=== PATIENT | female | born 1940 | race Caucasian/White ===

== ENCOUNTER 2016-06-20 13:13 | Emergency (ER) | payer OTHER ==
[~2016-06-20] VITALS: Ht 157.5 cm; Wt 50.7 kg
[2016-06-20 13:56] LABS: EOSINOPHIL (%) 0.1 % (0-5); HEMATOCRIT 38.8 % (36.0-46.0); IMMATURE GRANULOCYTE (%) 0.2 % (0.0-0.7); IMMATURE GRANULOCYTE COUNT 0.2 K/uL; LYMPHOCYTE COUNT 0.4 K/uL (1.0-2.8); MCH 31.2 PG (29.0-34.0); MCHC 33.2 G/DL (30.0-36.0); MCV 93.7 FL (83-99); MEAN PLAT.VOLUME 10.8 uM^3 (9.5-12.4); MONOCYTE (%) 2.4 % (3-12); MONOCYTE COUNT 0.3 K/uL (0-0.8); NEUTROPHIL (%) 93.6 % (45-76); NEUTROPHIL COUNT 10.7 K/uL (1.8-6.4); PLATELET COUNT 170 K/uL (156-360); RBC DIS.WIDTH-CV 12.8 % (11.8-14.6); RBC DIS.WIDTH-SD 42.4 % (39-53); RED BLOOD COUNT 4.14 M/uL (3.80-5.20); WHITE BLOOD COUNT 11.4 K/uL (4.1-10.2)
[2016-06-20 14:04] LABS: CHLORIDE 107 mEq/L (99-109); POTASSIUM 4.2 mEq/L (3.7-5.4); SODIUM 142 mEq/L (136-147)
[2016-06-20 14:06] LABS: GLUCOSE 148 mg/dL (70-99)
[2016-06-20 14:07] LABS: ANION GAP 11 MEQ/L (2-14)
[2016-06-20 14:09] LABS: ALKALINE PHOSPHATASE 69 IU/L (3-129)
[2016-06-20 14:10] LABS: GFR ESTIMATE (CALCULATED) > 59 mL/min/
[2016-06-20 14:11] LABS: UREA NITROGEN (BUN) 24 mg/dL (9-23)
[2016-06-20 14:13] LABS: LIPASE 24 U/L (1.0-51.0)
[2016-06-20 14:19] LABS: TROP-I INTERPRETATION NEGATIVE; TROPONIN-I < 0.01 ng/mL (0.0-0.30)
[2016-06-20] MEDS ORDERED: ZOFRAN ODT4 MG PO (17:10)
[2016-06-20] MEDS ORDERED: PERCOCET 5/31 TABLET PO (17:10)
[2016-06-20 17:12] VITALS: BP 142/63
== END 2016-06-20 17:15 | disposition home or self-care (01) ==
LOC: EME 13:13
PROVIDERS: Physician Assistant
DX: R10.9 Unspecified abdominal pain (principal); R11.2 Nausea with vomiting, unspecified
CPT/HCPCS: 71020; 74177; 80053; 83690; 84484; 85025; 93005; 99281; 99285; J2405; J7030

== ENCOUNTER 2016-08-06 10:13 | Day surgery (SDC) | payer OTHER ==
[~2016-08-06] VITALS: Ht 157.5 cm; Wt 51.3 kg
[~2016-08-06 10:13] MED LIST: ONE DAILY WOME1 EACH PO; PERCOCET 5/31 TABLET PO; ZOFRAN ODT4 MG PO
[2016-08-06 11:00] LABS: EOSINOPHIL (%) 2.2 % (0-5); EOSINOPHIL COUNT 0.1 K/uL (0-0.3); HEMATOCRIT 37.1 % (36.0-46.0); IMMATURE GRANULOCYTE (%) 0.2 % (0.0-0.7); LYMPHOCYTE COUNT 0.9 K/uL (1.0-2.8); MCH 30.4 PG (29.0-34.0); MCHC 32.1 G/DL (30.0-36.0); MCV 94.9 FL (83-99); MONOCYTE (%) 8.2 % (3-12); MONOCYTE COUNT 0.5 K/uL (0-0.8); NEUTROPHIL (%) 72.7 % (45-76); PLATELET COUNT 168 K/uL (156-360); RBC DIS.WIDTH-CV 12.6 % (11.8-14.6); RBC DIS.WIDTH-SD 43.8 % (39-53); RED BLOOD COUNT 3.91 M/uL (3.80-5.20); WHITE BLOOD COUNT 5.5 K/uL (4.1-10.2)
[2016-08-06 11:03] VITALS: BP 140/65
[2016-08-06 11:28] LABS: INTER. NORMALIZED RATIO 1.1; PROTHROMBIN TIME 10.7 (9.2-11.2)
[2016-08-06 11:31] LABS: ALKALINE PHOSPHATASE 58 IU/L (3-129); ANION GAP 7 MEQ/L (2-14); CHLORIDE 105 MEQ/L (99-109); GFR ESTIMATE (CALCULATED) > 59 mL/min/; GLUCOSE 91 mg/dL (70-99); POTASSIUM 4.3 MEQ/L (3.7-5.4); SAMPLE HEMOLYSIS CHECK 0; SAMPLE ICTERIC CHECK 0; SAMPLE LIPEMIA CHECK 0; SODIUM 141 MEQ/L (136-147); TOTAL BILIRUBIN 1.1 MG/DL (0.0-1.0); UREA NITROGEN (BUN) 18 mg/dL (9-23)
[2016-08-06] MEDS ORDERED: HYDROCODON-ACE1 EAC7 PO (14:58)
[2016-08-06] MEDS ORDERED: COLACE100 MG PO (14:58)
[2016-08-06 16:04] VITALS: BP 134/67
[2016-08-06 16:50] VITALS: BP 124/59
== END 2016-08-06 17:25 | disposition home or self-care (01) ==
LOC: SDC 10:13
PROVIDERS: Thoracic Surgery (Cardiothoracic Vascular Surgery)
PROC: 0FT44ZZ Resection of Gallbladder, Percutaneous Endoscopic Approach (ICD-10-PCS; principal; 2016-08-06)
DX: K80.10 Calculus of gallbladder with chronic cholecystitis without obstruction (principal); Z85.42 Personal history of malignant neoplasm of other parts of uterus; M17.9 Osteoarthritis of knee, unspecified; Z82.49 Family history of ischemic heart disease and other diseases of the circulatory system; Z80.0 Family history of malignant neoplasm of digestive organs; Z80.3 Family history of malignant neoplasm of breast; Z82.5 Family history of asthma and other chronic lower respiratory diseases; Z84.1 Family history of disorders of kidney and ureter; Z80.42 Family history of malignant neoplasm of prostate; Z88.2 Allergy status to sulfonamides
CPT/HCPCS: 80053; 85025; 85610; 88304; J0330; J0690; J1100; J1170; J2405; J2710; J3010; S0020